=== PATIENT | female | born 2005 | race Caucasian/White ===

== ENCOUNTER 2025-05-12 15:20 | Emergency (ER) | payer OTHER, SELFPAY ==
--- OUTSIDE RECORDS SUMMARY | 2025-04-22 11:05 | XMS_ITS | Encounter Summary ---
Author Organization [place] Address [address] [place] [address] Care Team Providers Care Mid Level Practitioner Name Role Phone Clarisa Valdovinos MD Primary Care Provider [phone] Clarisa Valdovinos MD Unavailable [phone] Khushbu Ruiz APRN [facility] Unavailable [phone] Encounter Details Date Type Department Care Team (Late st Contact Info) Description 04/22/2025 11:05 AM CDT E-Visit [facility] [address] [facility] [address] [place] [address] Clarisa Valdovinos MD [address] [facility] [address] [place] [address] ADHD (attention deficit hyperactivity disorder), inattentive type (Primary Dx) Social History Tobacco Use Types Packs/Day Years Used Date Smoking Tobacco: Never Passive Smoke Exposure: Never Smokeless Tobacco: Never Alcohol Use Standard Drinks/Week Comments Never 0 (1 standard drink = 0.6 oz pur e alcohol) Social Connection and Isolation Panel [NHANES] A nswer Date Recorded Frequency of Communication with Friends and Fami ly Not on file 11/21/2023 How often do you get together with friends or re latives? Once a week 11/21/2023 Attends Mandaeism Services Not on file 11/20 Active Member of Clubs or Organizations Not on f ile 11/21/2023 Attends Club or Organization Meetings Not on maryana e 11/21/2023 Marital Status Not on file 11/21/2023 PHQ-2 Answer Date Recorded PHQ-2 Score 1 04/22/2025 [facility] of Occupat ional Health - Occupational Stress Questionnaire Answer Date Recorded Do you feel stress - tense, restless, nervous, or anxious, or unable to sleep at night because your mind is troubled all the time - these days? Rather much 11/21/2023 Exercise Vital Sign Answer Date Recorde d On average, how many days pe r week do you engage in moderate to strenuous exercise (like a brisk walk)? 3 days 11/21/2023 On average, how many minutes do you engage in exercise at this level? 30 min 11/21/2023 Adolescent Education Answer Date Record ed Getting School Help Needed Not on file 04/20 Food Insecurity Answer Date Recorded Within the past 12 months, d id you worry that your food would run out before you got money to buy more? No 11/21/2023 Within the past 12 months, d id the food you bought just not last and you didn t have money to get more? No 11/21/2023 Housing Stability Answer Date Recorded Do you have housing? (Keithin g is defined as stable permanent housing and does not include staying outside in a car, in a tent, in an abandoned building, in an overnight correction, or couch-surfing.) Yes 11/21/2023 Are you worried about losing your housing? No 11/21/2023 Financial Resource Strain Answer Date R ecorded Within the past 12 months, h ave you or your family members you live with been unable to get utilities (heat, electricity) when it was really needed? No 11/21/2023 Transportation Needs Answer Date Record ed Within the past 12 months, h as lack of transportation kept you from medical appointments, getting your medicines, non-medical meetings or appointments, work, or from getting things that you need? No 11/21/2023 Interpersonal Safety Answer Date Record ed Do you feel physically and e motionally safe where you currently live? Yes 09/25/2024 Within the past 12 months, h ave you been hit, slapped, kicked or otherwise physically hurt by someone? No 09/25/2024 Within the past 12 months, h ave you been humiliated or emotionally abused in other ways by your partner or ex-partner? No 09/25/2024 Comments No Sex and Gender Information Value Date Recorded Sex Assigned at Not on file Legal Sex Female 4:37 AM SUPERVISOR FINISH END Gender Identity Not on file Sexual Orientation Don't know 06/03/2022 9: 43 AM SUPERVISOR FINISH END documented as of this encounter Patient Instructions * Patient Instructions* Clarisa Valdovinos MD - 04/22/2025 11:05 AM CDT I am glad you are doing well. I have refilled your medication: Orders Placed This Encounter Medications ??? methylphenidate (RITALIN LA) 30 MG 24 hr capsule Sig: Take 1 capsule (30 mg) by mouth daily. Dispense: 30 capsule Refill: 0 ??? methylphenidate (RITALIN LA) 30 MG 24 hr capsule Sig: Take 1 capsule (30 mg) by mouth daily. Dispense: 30 capsule Refill: 0 ??? methylphenidate (RITALIN LA) 30 MG 24 hr capsule Sig: Take 1 capsule (30 mg) by mouth daily. This is last prescription in series. Please start eVisit for next refill Dispense: 30 capsule Refill: 0 View your full visit summary for details by clicking on the link below. Your pharmacist will be able to address any questions you may have about the medication. Thank you for choosing us for your care. documented in this encounter Miscellaneous Notes * Telephone Encounter - Clarisa Valdovinos MD - 04/22/2025 1:06 PM CDT Provider E-Visit time total (minutes): 5 minutes documented in this encounter Plan of Treatment Not on file documented as of this encounter Visit Diagnoses Diagnosis ADHD (attention deficit hyperactivity disorder), inattentive type- Primary Attention deficit disorder with hyperactivity documented in this encounter Additional Health Concerns Assessment Noted Time PHQ-9 Depression Total Score: 5 04/22/20 25 11:02 AM CDT documented as of this encounter Care Teams Mid Level Practitioner Relationship Specialty Start Date End Date Clarisa Valdovinos MD [address] [facility] [address] [place] [address] PCP - General Family Medicine 01/28/22 Clarisa Valdovinos MD [address] [facility] [address] [place] [address] Assigned PCP 10/29/22 Khushbu Ruiz APRN SPRIGGER [address] [place] [address] Assigned Behavioral Health Provider 10/06/24 documented as of this encounter
[2025-05-12 16:30] VITALS: BP 142/84; PULSE 97; RESP 18; TEMP 37; O2SAT 99; BMI 32.7
--- NOTE | 2025-05-12 17:54 | ED.GENADULT ---
HPI - General Adult General Chief complaint: GI Bleed Stated complaint: Bloody stool Time Seen by Provider: 05/12/25 17:34 History of Present Illness HPI narrative: This 19-year-old female comes in reporting a couple days where she had some bright red and dark red blood on her stool and in the toilet. Her last bowel movement was completely normal. She does not report any other symptoms. He does not have any family history of colon problems. She is not on any anticoagulants and otherwise is in good health. She does report some constipation and diarrhea symptoms intermitte Related Data Home Medications ?Medication ?Instructions ?Recorded ?Confirmed drospirenone 3 mg-ethinyl 1 tab PO DAILY 05/12/25 05/12/25 estradiol 0.03 mg tablet (Zumandimine (28)) ferrous sulfate 325 mg (65 mg 325 mg PO DAILY 05/12/25 05/12/25 iron) tablet (iron) methylphenidate HCl 20 mg tablet 30 mg PO DAILY 05/12/25 05/12/25 (Ritalin) sertraline 100 mg tablet 100 mg PO DAILY 05/12/25 05/12/25 Allergies Allergy/AdvReac Type Severity Reaction Status Date / Time No Known Drug Allergies Allergy Verified 05/12/25 16:30 Review of Systems Status of ROS: Reports: 10 or more systems reviewed and unremarkable except as noted in History and below Narrative: Constitutional: No fevers, no weight gain or loss. Eyes: No discharge. No vision changes. HENT: No congestion, no sore throat, no ear pain. Cardiovascular: No chest pain, no palpitations. Respiratory: No shortness of breath, no wheezes, no cough. Gastrointestinal: No abdominal pain, no vomiting, no diarrhea. Blood in the toilet as described above. Genitourinary: No dysuria, no hematuria. Musculoskeletal: Normal range of motion. Skin: No rashes, no pruritis. Neurological: No dizziness, weakness, sensory change, speech change. Endo/Heme/Allergies: No bruising or bleeding. No polydipsia. Pysch: no suicidality, no anxiety, no insomnia. All other systems reviewed and are negative. Exam Narrative: Exam Narrative: Constitutional: Well-developed, well-nourished, no acute distress. HEENT: Normocephalic, atraumatic. Neck: Normal range of motion. Nontender. Supple. Heart: Regular. No murmurs. Normal rate. Intact distal pulses. Lungs: Clear to auscultation. No chest discomfort. No wheezes, rhonchi, or rales. Abdomen: Normal bowel sounds. Nontender. No rebound tenderness. Genitalia: Deferred. Back: No midline tenderness. Normal range of motion. Extremities: Normal range of motion. No injury. Skin: Intact. No rash. Warm. No erythema or pallor. Neurologic: No altered sensation. No weakness. Alert and oriented. Psychiatric: No suicidality. No anxiety or depression. No insomnia. Nursing notes and vitals signs are reviewed. Const: Vital Signs, click to edit/add: Vital Signs - 24 hr 05/12/25 16:30 Temperature 98.6 F Pulse Rate [Right Pulse Oximeter] 97 Respiratory Rate 18 Blood Pressure [Ri ght Upper Arm] 142/84 H Pulse Oximetry 99 Oxygen Delivery Me thod Room Air Course Vital Signs Vital signs: Initial Vital Signs Temperature 98.6 F 05/12/25 16:30 Temperature Source Temporal Artery Scan 05/12/25 16:30 Pulse Rate 97 05/12/25 16:30 Respiratory Rate 18 05/12/25 16:30 Blood Pressure 142/84 H 05/12/25 16:30 Blood Pressure Mean 103 05/12/25 16:30 Blood Pressure Position Sitting 05/12/25 16:30 Pulse Oximetry 99 05/12/25 16:30 Oxygen Delivery Method Room Air 05/12/25 16:30 Vital Signs Temperature 98.6 F 05/12/25 16:30 Pulse Rate 97 05/12/25 16:30 Respiratory Rate 18 05/12/25 16:30 Blood Pressure 142/84 H 05/12/25 16:30 Pulse Oximetry 99 05/12/25 16:30 Oxygen Delivery Method Room Air 05/12/25 16:30 Temperature 98.6 F 05/12/25 16:30 Pulse Rate 97 05/12/25 16:30 Respiratory Rate 18 05/12/25 16:30 Blood Pressure 142/84 H 05/12/25 16:30 Pulse Oximetry 99 05/12/25 16:30 Oxygen Delivery Method Room Air 05/12/25 16:30 Medical Decision Making MDM Narrative Medical decision making narrative: This patient comes in reporting some blood in the toilet as described above. She called the nurse at the clinic who told her to come in here for evaluation. She arrives here with normal vital signs. She is otherwise in good health. She does describe some recent constipation and diarrhea symptoms. I stated that most likely this is coming from the rectum and perhaps from a anal fissure or hemorrhoid bleed. I did discuss lab and imaging options here and the patient declined these currently in a process of shared decision making. I did describe signs and symptoms where she should return for re-evaluation. I did state that a scope of some sort to give a direct look is what is recommended when there is bleeding in the toilet like this. She plans to follow-up with her primary physician. Discharge Plan Discharge Clinical Impression: Rectal bleeding Patient Disposition: Home, Self-Care Condition: Stable Additional Instructions: it is recommended to use fiber additives regularly. Follow up with primary physician for ongoing management. return to emergency department if bleeding is recurrent. Prescriptions: No Action methylphenidate HCl [Ritalin] 20 mg tablet 30 mg PO DAILY sertraline 100 mg tablet 100 mg PO DAILY drospirenone-ethinyl estradiol [Zumandimine (28)] 3-0.03 mg tablet 1 tab PO DAILY ferrous sulfate [iron] 325 mg (65 mg iron) tablet 325 mg PO DAILY Stand Alone Forms: [employer] Info Instructions
--- OUTSIDE RECORDS SUMMARY | 2025-05-12 18:13 | XMS_ITS | Encounter Summary ---
Author Organization [place] Address [address] [place] [address] Care Team Providers Care Auricular Acupuncturist Name Role Phone Clarisa Valdovinos MD Primary Care Provider [phone] Clarisa Valdovinos MD Unavailable [phone] Khushbu Ruiz APRN BEHAVIORAL MODIFICATION ASSISTANT Unavailable [phone] Khushbu Ruiz APRN BEHAVIORAL MODIFICATION ASSISTANT Unavailable [phone] Encounter Details Date Type Department Care Team (Late st Contact Info) Description 03/01/2023 MyC Medical Advice [facility] [address] [facility] [address] [place] [address] Clarisa Valdovinos MD [address] [facility] [address] [place] [address] Social History Tobacco Use Types Packs/Day Years Used Date Smoking Tobacco: Never Passive Smoke Exposure: Never Smokeless Tobacco: Never Alcohol Use Standard Drinks/Week Comments Never 0 (1 standard drink = 0.6 oz pur e alcohol) PHQ-2 Answer Date Recorded PHQ-2 Score 2 11/25/2022 Hunger Vital Sign Answer Date Recorded Within the past 12 months, y ou worried that your food would run out before you got the money to buy more. Never true 06/03/20 22 Within the past 12 months, t he food you bought just didn't last and you didn't have money to get more. Never true 06/03/2022 PRAPARE - Transportation Answer Date Re corded In the past 12 months, has l ack of transportation kept you from medical appointments or from getting medications? No 06/03/2022 Lack of Transportation (Non-Medical) Not on file 06/03/2022 Housing Stability Vital Sign Answer Vince e Recorded In the last 12 months, was t here a time when you were not able to pay the mortgage or rent on time? No 06/03/2022 Number of Places Lived in the Last Year Not on f ile 06/03/2022 In the last 12 months, was t here a time when you did not have a steady place to sleep or slept in a fdc (including now)? No 06/03/2022 Comments No Sex and Gender Information Value Date Recorded Sex Assigned at Not on file Legal Sex Female 4:37 AM PATIENT CARE DIRECTOR Gender Identity Not on file Sexual Orientation Don't know 06/03/2022 9: 43 AM PATIENT CARE DIRECTOR documented as of this encounter Plan of Treatment Not on file documented as of this encounter Visit Diagnoses Not on filedocumented in this encounter Additional Health Concerns Infection Onset Date Last Indicated Resolved Time Rule Out COVID-19 08/03/2024 08/03/2024 08/03/2024 6:52 PM PATIENT CARE DIRECTOR documented as of this encounter Care Teams Auricular Acupuncturist Relationship Specialty Start Date End Date Clarisa Valdovinos MD [address] [facility] [address] [place] [address] PCP - General Family Medicine 01/28/22 Clarisa Valdovinos MD [address] [facility] [address] [place] [address] Assigned PCP 10/29/22 Khushbu Ruiz APRN BEHAVIORAL MODIFICATION ASSISTANT [address] [place] [address] Assigned Behavioral Health Provider 10/06/24 Khushbu Ruiz APRN BEHAVIORAL MODIFICATION ASSISTANT [address] [place] [address] Assigned Behavioral Health Provider 01/07/24 10/05/24 documented as of this encounter
--- OUTSIDE RECORDS SUMMARY | 2025-05-12 18:13 | XMS_ITS | Encounter Summary ---
Author Organization [place] Address [address] [place] [address] Care Team Providers Care Basketball Referee Name Role Phone Clarisa Valdovinos MD Primary Care Provider [phone] Clarisa Valdovinos MD Unavailable [phone] Khushbu Ruiz APRN [facility] Unavailable Reason for Visit * Reason Onset Date Comments Rectal Problem 05/11/2025 Encounter Details Date Type Department Care Team (Late st Contact Info) Description 05/11/2025 MyC Medical Advice [facility] [address] [facility] [address] [place] [address] Clarisa Valdovinos MD [address] [facility] [address] [place], [place] [id number] Rectal Problem Social History Tobacco Use Types Packs/Day Years [...] re latives? Once a week 11/21/2023 Attends [employer] [facility] Not on file 11/20 Active Member of Clubs or Organizations Not on f ile 11/21/2023 Attends Club or Organization Meetings Not on maryana e 11/21/2023 Marital Status Not on file 11/21/2023 PHQ-2 Answer Date Recorded PHQ-2 Score 1 04/22/2025 [facility] of Occupat ional Health - Occupational Stress [...] in an abandoned building, in an overnight mcfp, or couch-surfing.) Yes 11/21/2023 Are you worried [...] on file Legal Sex Female 4:37 AM WATCH AND CLOCK REPAIRER Gender Identity Not on file Sexual Orientation Don't know 06/03/2022 9: 43 AM WATCH AND CLOCK REPAIRER documented as of this encounter Miscellaneous Notes * Telephone Encounter - Kristal Hare RN - 05/12/2025 1:01 PM CDT No answer. Left message on patient's voicemail to call back and speak with a triage nurse. Responded to the patient through [employer]. Kristal Hare RN [facility] documented in this encounter Plan of Treatment Not on file documented as of this encounter Visit Diagnoses Not on filedocumented in this encounter Additional Health Concerns Assessment Noted Time PHQ-9 Depression Total Score: 5 04/22/20 25 11:02 AM CDT documented as of this encounter Care Teams Basketball Referee Relationship Specialty Start Date End Date Clarisa Valdovinos MD [address] [facility] [address] [place] [address] PCP - General Family Medicine 01/28/22 Clarisa Valdovinos MD [address] [facility] [address] [place] [address] Assigned PCP 10/29/22 Khushbu Ruiz APRN HOSE TENDER [address] [place] [address] Assigned Behavioral Health Provider 10/06/24 documented as of this encounter
--- OUTSIDE RECORDS SUMMARY | 2025-05-12 18:13 | XMS_ITS | Encounter Summary ---
Author Organization [place] Address [address] [place] [address] Care Team Providers Care Sports Development Officer Name Role Phone Clarisa Valdovinos MD Primary Care Provider [phone] Clarisa Valdovinos MD Unavailable [phone] Khushbu Ruiz APRN SHACTOR HELPER Unavailable [phone] Khushbu Ruiz APRN SHACTOR HELPER Unavailable [phone] Encounter Details Date Type Department Care Team (Late st Contact Info) Description 03/09/2024 MyC Medical Advice Initial Department [facility] Social History Tobacco Use Types Packs/Day Years [...] re latives? Once a week 11/21/2023 Attends [employer] Services Not on file 11/20 Active Member of Clubs or Organizations Not on f ile 11/21/2023 Attends Club or Organization Meetings Not on maryana e 11/21/2023 Marital Status Not on file 11/21/2023 PHQ-2 Answer Date Recorded PHQ-2 Score 0 03/12/2024 [facility] of Occupat ional [facility] - Occupational Stress Questionnaire Answer Date Recorded [...] in an abandoned building, in an overnight long-term, or couch-surfing.) Yes 11/21/2023 Are you worried [...] motionally safe where you currently live? Yes 11/24/2023 Within the past 12 months, h ave you been hit, slapped, kicked or otherwise physically hurt by someone? No 11/24/2023 Within the past 12 months, h ave you been humiliated or emotionally abused in other ways by your partner or ex-partner? No 11/24/2023 Comments No Sex and Gender Information Value Date Recorded Sex Assigned at Not on file Legal Sex Female 4:37 AM FILE CONVERSION OPERATOR Gender Identity Not on file Sexual Orientation Don't know 06/03/2022 9: 43 AM FILE CONVERSION OPERATOR documented as of this encounter Plan of Treatment Not on file documented as of this encounter Visit Diagnoses Not on filedocumented in this encounter Additional Health Concerns Infection Onset Date Last Indicated Resolved Time Rule Out COVID-19 08/03/2024 08/03/2024 08/03/2024 6:52 PM FILE CONVERSION OPERATOR Assessment Noted Time PHQ-9 Depression Total Score: 1 03/09/20 12:45 PM CDT documented as of this encounter Care Teams Sports Development Officer Relationship Specialty Start Date End Date Clarisa Valdovinos MD [address] [facility] [address] [place] [address] PCP - General Family Medicine 01/28/22 Clarisa Valdovinos MD [address] [facility] [address] [place] [address] Assigned PCP 10/29/22 Khushbu Ruiz APRN SHACTOR HELPER [address] [place] [address] Assigned Behavioral Health Provider 10/06/24 Khushbu Ruiz APRN SHACTOR HELPER [address] [place] [address] Assigned Behavioral Health Provider 01/07/24 10/05/24 documented as of this encounter
--- OUTSIDE RECORDS SUMMARY | 2025-05-12 18:13 | XMS_ITS | Encounter Summary ---
Author Organization [place] Address [address] [place] [address] Care Team Providers Care Waste Machine Tender Name Role Phone Clarisa Valdovinos MD Primary Care Provider [phone] Clarisa Valdovinos MD Unavailable [phone] Khushbu Ruiz APRN POUNDMASTER Unavailable [phone] Khushbu Ruiz APRN POUNDMASTER Unavailable [phone] Encounter Details Date Type Department Care Team [...] re latives? Once a week 11/21/2023 Attends [employer] Services Not on file 11/20 Active Member of Clubs or Organizations Not on f ile 11/21/2023 Attends Club or Organization Meetings Not on maryana e 11/21/2023 Marital Status Not on file 11/21/2023 PHQ-2 Answer Date Recorded PHQ-2 Score 0 03/12/2024 [facility] [place] of Occupat ional [facility] - Occupational Stress Questionnaire Answer Date Recorded [...] on file Legal Sex Female 4:37 AM LEAD GAME DESIGNER Gender Identity Not on file Sexual Orientation Don't know 06/03/2022 9: 43 AM LEAD GAME DESIGNER documented as of this encounter Plan of Treatment Not on file documented as of this encounter Visit Diagnoses Not on filedocumented in this encounter Additional Health Concerns Infection Onset Date Last Indicated Resolved Time Rule Out COVID-19 08/03/2024 08/03/2024 08/03/2024 6:52 PM LEAD GAME DESIGNER Assessment Noted Time PHQ-9 Depression Total Score: 1 03/09/20 12:45 PM CDT documented as of this encounter Care Teams Waste Machine Tender Relationship Specialty Start Date End Date Clarisa Valdovinos MD [address] [facility] [address] [place] [address] PCP - General Family Medicine 01/28/22 Clarisa Valdovinos MD [address] [facility] [address] [place] [address] Assigned PCP 10/29/22 Khushbu Ruiz APRN POUNDMASTER [address] [place] [address] Assigned Behavioral Health Provider 10/06/24 Khushbu Ruiz APRN POUNDMASTER [address] [place] [address] Assigned Behavioral Health Provider 01/07/24 10/05/24 documented as of this encounter
--- OUTSIDE RECORDS SUMMARY | 2025-05-12 18:13 | XMS_ITS | Encounter Summary ---
Author Organization [place] Address [address] [place] [address] Care Team Providers Care Fire Safety Inspector Name Role Phone Clarisa Valdovinos MD Primary Care Provider [phone] Clarisa Valdovinos MD Unavailable [phone] Khushbu Ruiz APRN BRAKE REPAIR MECHANIC Unavailable [phone] Khushbu Ruiz APRN BRAKE REPAIR MECHANIC Unavailable [phone] Reason for Visit * Reason Onset Date Comments Refill Request 11/24/2022 propranolol (IND ERAL) 10 MG tablet pt. Wants 90 day supply rec. 11-24-22 Encounter Details Date Type Department Care Team (Late st Contact Info) Description 11/24/2022 Refill [facility] [address] [place] [address] Clarisa Valdovinos MD [address] [facility] [address] [place], [place] [id number] Refill Request (propranolol (INDERAL) 10 MG tablet pt. Wants 90 day supply rec. 11-24-22) Social History Tobacco Use Types Packs/Day Years Used Date Smoking Tobacco: Never Passive Smoke Exposure: Never Alcohol Use Standard Drinks/Week Comments Never [...] place to sleep or slept in a halfway (including now)? No 06/03/2022 Comments No Sex and Gender Information Value Date Recorded Sex Assigned at Not on file Legal Sex Female 4:37 AM PLANNING RN Gender Identity Not on file Sexual Orientation Don't know 06/03/2022 9: 43 AM PLANNING RN documented as of this encounter Miscellaneous Notes * Telephone Encounter - Anisha Warner RN - 11/25/2022 4:20 PM CDT Routing refill request to provider for review/approval because: Needs review Last Written Prescription Date: 11/14/22 Last Fill Quantity: 30, # refills: 0 Last office visit provider: 10/25/22 Requested Prescriptions Pending Prescriptions Disp Refills ??? propranolol (INDERAL) 10 MG tablet 30 tablet 0 Sig: Take 1 tablet (10 mg) by mouth 2 times daily as needed (anxiety) Beta-Blockers Protocol Passed - 11/24/2022 2:01 PM Passed - Blood pressure under 140/90 in past 12 months BP Readings from Last 3 Encounters: 06/03/22 116/79 (70 %/ 92 %)* *BP percentiles are based on the 2017 AAP Clinical Practice Guideline for girls Passed - Patient is age 6 or older Passed - Recent (12 mo) or future (30 days) visit within the authorizing provider's specialty Patient has had an office visit with the authorizing provider or a provider within the authorizing providers department within the previous 12 mos or has a future within next 30 days. See Patient Info tab in inbasket, or Choose Columns in Meds & Orders section of the refill encounter. Passed - Medication is active on med list Anisha Warner RN 11/25/22 4:20 PM documented in this encounter Plan of Treatment Not on file documented as of this encounter Visit Diagnoses Diagnosis DARCY (generalized anxiety disorder) Generalized anxiety disorder ADHD (attention deficit hyperactivity disorder), inattentive type Attention deficit disorder with hyperactivity documented in this encounter Additional Health Concerns Infection Onset Date Last Indicated Resolved Time Rule Out COVID-19 08/03/2024 08/03/2024 08/03/2024 6:52 PM PLANNING RN documented as of this encounter Care Teams Fire Safety Inspector Relationship Specialty Start Date End Date Clarisa Valdovinos MD [address] [facility] [address] [place] [address] PCP - General Family Medicine 01/28/22 Clarisa Valdovinos MD [address] [facility] [address] [place] [address] Assigned PCP 10/29/22 Khushbu Ruiz APRN BRAKE REPAIR MECHANIC [address] [place] [address] Assigned Behavioral Health Provider 10/06/24 Khushbu Ruiz APRN BRAKE REPAIR MECHANIC [address] [place] [address] Assigned Behavioral Health Provider 01/07/24 10/05/24 documented as of this encounter
--- OUTSIDE RECORDS SUMMARY | 2025-05-12 18:13 | XMS_ITS | Encounter Summary ---
Author Organization [place] Address [address] [facility] [place] [address] Care Team Providers Care Processor Inspector Name Role Phone Clarisa Valdovinos MD Primary Care Provider [phone] Clarisa Valdovinos MD Unavailable [phone] Khushbu Ruiz APRN AWNING SPREADER Unavailable [phone] Khushbu Ruiz APRN AWNING SPREADER Unavailable [phone] Encounter Details Date Type Department Care Team (Late st Contact Info) Description 09/02/2024 MyC Medical Advice [facility] [address] [facility] [address] [facility] [address] [place] [address] Clarisa Valdovinos MD [address] [facility] [address] [place] [address] DARCY (generalized anxiety disorder) (Primary Dx); Anxiety Social History Tobacco Use Types Packs/Day Years [...] re latives? Once a week 11/21/2023 Attends Confucianist Services Not on file 11/20 Active Member of Clubs or Organizations Not on f ile 11/21/2023 Attends Club or Organization Meetings Not on maryana e 11/21/2023 Marital Status Not on file 11/21/2023 PHQ-2 Answer Date Recorded PHQ-2 Score 1 07/15/2024 [facility] - Occupational Stress Questionnaire Answer Date [...] Answer Date Recorded Do you have housing? (Bria g is defined as stable permanent housing and does not include staying outside in a car, in a tent, in an abandoned building, in an overnight mcc, or couch-surfing.) Yes 11/21/2023 Are you worried [...] file Legal Sex Female 4:37 AM SUPERVISOR BINDERY Gender Identity Not on file Sexual Orientation Don't know 06/03/2022 9: 43 AM SUPERVISOR BINDERY documented as of this encounter Miscellaneous Notes * Telephone Encounter - Jamel Dunn, RN - 09/09/2024 11:06 AM SUPERVISOR BINDERY Khushbu Napier pt is requesting a form be completed for an VIVIENNE. Dagoberto Dunn BSN, PHN, AMB-BC (she/her) [facility] RN RVISOR BINDERY * Telephone Encounter - Heavenly Boyer - 09/03/2024 7:42 AM CST Please review and sign if agreeable-thanks! RVISOR BINDERY documented in this encounter Plan of Treatment Not on file documented as of this encounter Visit Diagnoses Diagnosis DARCY (generalized anxiety disorder)- Primary Generalized anxiety disorder Anxiety Anxiety state, unspecified documented in this encounter Additional Health Concerns Assessment Noted Time PHQ-9 Depression Total Score: 1 03/09/20 24 12:45 PM CDT documented as of this encounter Care Teams Processor Inspector Relationship Specialty Start Date End Date Clarisa Valdovinos MD [address] [address] PCP - General Family Medicine 01/28/22 Clarisa Valdovinos MD [address] [address] Assigned PCP 10/29/22 Khushbu Ruiz APRN AWNING SPREADER [address] [place] [address] Assigned Behavioral Health Provider 10/06/24 Khushbu Ruiz APRN [facility] [address] [place] [address] Assigned Behavioral Health Provider 01/07/24 10/05/24 documented as of this encounter
--- OUTSIDE RECORDS SUMMARY | 2025-05-12 18:13 | XMS_ITS | Clinical Summary ---
Author Organization [place] Address [address] [place] [address] Care Team Providers Care Oil Paint Shader Name Role Phone Clarisa Valdovinos MD Primary Care Provider [phone] Clarisa Valdovinos MD Unavailable [phone] Khushbu Ruiz APRN [facility] Unavailable [phone] Allergies No known active allergies Medications * This document contains information received from the source organization and may not represent a complete record from that organization. fluocinonide (LIDEX) 0.05 % external solutionIndicati ons:Psoriasis APPLY SPOT TREATMENT TO THE AREAS OF PSORIASIS IN SCALP NEEDED NIGHTLY. 60 mL 1 025 Active sertraline (ZOLOFT) 100 MG tabletIndication s:DARCY (generalized anxiety disorder) Take 1.5 tablets (150 mg) by mouth daily. 135 tablet 1 025 Active fluocinolone acetonide (DERMA SMOOTHE/FS BODY) 0.01 % external oilIndications:P soriasis Apply to scalp as often as each night as needed for thick scale. Wash out in AM. 118.28 mL 1 025 Active tacrolimus (PROTOPIC) 0.1 % external ointmentIndicati ons:Psoriasis Apply topically 2 times daily as needed. 100 g 1 025 Active methylphenidate (RITALIN LA) 30 MG 24 hr capsuleIndicatio ns:ADHD (attention deficit hyperactivity disorder), inattentive type Take 1 capsule (30 mg) by mouth daily. 30 capsule 025 2024 Active methylphenidate (RITALIN LA) 30 MG 24 hr capsuleIndicatio ns:ADHD (attention deficit hyperactivity disorder), inattentive type Take 1 capsule (30 mg) by mouth daily. 30 capsule 025 2024 Active methylphenidate (RITALIN LA) 30 MG 24 hr capsuleIndicatio ns:ADHD (attention deficit hyperactivity disorder), inattentive type Take 1 capsule (30 mg) by mouth daily. This is last prescription in series. Please start eVisit for next refill 30 capsule 025 2025 Active drospirenone-eth inyl estradiol (ZUMANDIMINE) 3-0.03 MG tabletIndication s:Encounter for surveillance of contraceptive pills TAKE 1 TABLET BY MOUTH EVERY DAY 84 tablet 1 025 Active drospirenone-eth inyl estradiol (LISA) 3-0.03 MG tabletIndication s:Encounter for surveillance of contraceptive pills Take 1 tablet by mouth daily 90 tablet 4 024 2024 Discontinued Active Problems Problem Noted Date Diagnosed Date Iron deficiency anemia, unsp ecified iron deficiency anemia type 06/06/2022 Overview (09/25/2024): 09/25/2024 A/P: Taking over the counter iron daily ADHD (attention deficit hype ractivity disorder), inattentive type 06/03/2022 Overview (09/25/2024): 09/25/2024 A/P: Was stablized on 30 mg ritalin LA by psychiatry in 2023. Now transferring care here; working well. History: 2023: had [facility] neuropsych evaluation that suggested stimulants might not be effective halfway. However needs to get homework done. Plan: stop guanfacine, start Vyvanse. Refer [facility] 2021: See below - has been on adderall since 2nd grade Anxiety 06/03/2022 Overview (09/25/2024): 09/25/2024 A/P: Doing much better with anxiety on sertraline 100 mg daily since 2023. 2021: Currently undergoing intensive neuropsych workup @ [facility] Will need to establish w psychiatrist after this Went ahead and placed referral now as waitlist long Acne, unspecified acne type 06/03/2022 Overview (06/03/2022): Following with derm Dr. Nielson online Start oral abx and OCP Encounters Date Type Department Care Team Description 05/11/2025 MyC Medical Advice [address] [address] Clarisa Valdovinos MD Rectal Problem 04/26/[address] [place] [address] Clarisa Valdovinos MD Medication Refill 04/22/2025 11:05 AM CDT E-Visit [address] [address] Clarisa Valdovinos MD ADHD (attention deficit hyperactivity disorder), inattentive type (Primary Dx) from Last 3 Months Immunizations Immunization Administration Dates Next Due COVID-19 12+ (Pfizer) 05/18/2024 COVID-19 Bivalent 12+ (Pfizer) 06/01/2022 COVID-19 MONOVALENT 12+ (Pfizer) 12/15/2020,11/14 Comvax (HIB/HepB) 11/25/2005,03/24/2005,01/25/20 05 DTAP (<7y) 11/24/2009, 6,06/14/2005,03/24,01/24/2005 Flu, Unspecified 06/01/2006 HPV9 (Gardasil) 09/25/2024 Hepatitis A (Vaqta/Havrix)(P eds 12m-18y) 06/14/2012,12/06/2011 Influenza (prior to 2023) 06/14/2012,05/03/2007, 06/14/2005 Influenza Intranasal Vaccine 06/14/2010,09/25/20 09 Influenza Vaccine >6 months,quad, PF ,05/06/2021,03/31/2020,05/01 Influenza, Split Virus, Triv alent, Pf (Fluzone\Fluarix) 05/18/2024 Influenza,INJ,MDCK,PF,Quad >6mo(Flucelvax) 06/01/2022 MMR (MMRII) 12/17/2008,11/25/2005 Meningococcal ACWY (Menactra ) 05/06/2021 Meningococcal B (Bexsero ) 09/25/2024 Nasal Influenza Vaccine 2-49 (FluMist) 4,04/23/2013 Pneumococcal (PCV 7) 03/01/2006,06/14/20 05,03/24/2005,01/24 Poliovirus, inactivated (IPV) 12/17/2008 ,06/14/2005,03/24/2005,01/24 TDAP (Adacel,Boostrix) 05/15/2023 Varicella (Varivax) 11/24/2009,11/25/2005 Family History Medical History Relation Comments Anxiety Disorder Father Attention Deficit Disorder Father Alcoholism Maternal Aunt Myocardial Infarction Maternal Grandfather Depression Maternal Grandmother Substance Abuse Maternal Grandmother Anxiety Disorder Mother Suicidality No family hx of Relation Status Comments Father Maternal Aunt Alive Maternal Grandfather Maternal Grandmother Mother Social History Tobacco Use Types Packs/Day Years Used Date Smoking Tobacco: Never Passive Smoke Exposure: Never Smokeless Tobacco: Never Tobacco Cessation:Counseling Given: Not Answered Alcohol Use Standard Drinks/Week Comments Never 0 (1 standard drink = 0.6 oz pur e alcohol) Social Connection and Isolation Panel [NHANES] A nswer Date Recorded Frequency of Communication with Friends and Fami ly Not on file 11/21/2023 How often do you get together with friends or re latives? Once a week 11/21/2023 Attends Mandaen Services Not on file 11/20 Active Member of Clubs or Organizations Not on f ile 11/21/2023 Attends Club or Organization Meetings Not on maryana e 11/21/2023 Marital Status Not on file 11/21/2023 PHQ-2 Answer Date Recorded PHQ-2 Score 1 04/22/[address] [facility] - Occupational Stress Questionnaire Answer [...] Answer Date Recorded Do you have housing? (Housin g is defined as stable permanent housing and does not include staying outside in a car, in a tent, in an abandoned building, in an overnight long term, or couch-surfing.) Yes 11/21/2023 Are you worried [...] on file Legal Sex Female 4:37 AM KENO CLERK Gender Identity Not on file Sexual Orientation Don't know 06/03/2022 9: 43 AM KENO CLERK Last Filed Vital Signs Vital Sign Reading Time Taken Comments Blood Pressure 123/79 09/25/2024 9:07 AM CDT Pulse 105 09/25/2024 9:07 AM CDT Temperature 36.9 C (98.4 F) 09/25/2024 9:07 AM CDT Respiratory Rate 16 09/25/2024 9:07 AM CDT Oxygen Saturation 96% 09/25/2024 9:07 AM CDT Inhaled Oxygen Concentration - - Weight 92.9 kg (204 lb 11.2 oz) 09/25/2024 9:07 AM CDT BLIND WT Height 171.2 cm (5' 7.4) 09/25/2024 9:07 AM CDT Body Mass Index 31.68 09/25/2024 9:07 AM CDT Plan of Treatment Health Maintenance Due Date Last Done Comments HPV VACCINE (2 - 3-dose series) 10/23/2024 09/25/2024 YEARLY PREVENTIVE VISIT 2024 11/24/2023, 06/03 MENINGITIS B VACCINE (2 of 2 - Bexsero SCDM 2-dose series) 03/28/2025 09/25/2024 CBC W/DIFFERENTIAL 08/03/2025 08/03/2024, 0 01/27/2024, 07/21/2022, Additional history exists ANNUAL REVIEW OF HM ORDERS 09/25/202509/25, 02/05/2024, 06/03/2022, Additional history exists CHLAMYDIA SCREENING 09/25/2025 09/25/2024 ADVANCE CARE PLANNING 2028 11/24/2023 DTAP/TDAP/TD VACCINE (7 - Td or Tdap) 05/15/2033 05/15/2023, 11/24/2009, 06/01/2006, Additional history exists ZOSTER VACCINE (1 of 2) 2054 HEPATITIS B VACCINE Completed 11/25/2005, 03/24/2005, 01/24/2005 PNEUMOCOCCAL VACCINE: PEDIATRICS (0 to 5 YEARS) AND AT-RISK PATIENTS (6 to 49 YEARS) Aged Out 03/01/2006, 06/14/2005, 03/24/2005, Additional history exists No longer eligible based on patient's age to complete this topic MENINGITIS VACCINE Completed 05/06/2021 HEPATITIS C SCREENING Completed 09/25/2024 HIV SCREENING Completed 09/25/2024 INFLUENZA VACCINE Completed 04/16/2025, , 04/08/2023, Additional history exists PHQ-2 (once per calendar year) Completed 04/22/2025, 04/22/2025, 09/23/2024, Additional history exists COVID-19 VACCINE Completed 05/01/2025, 08/2023, 05/06/2023, Additional history exists Procedures Procedure Name Priority Date/Time Associated Diagnosis Comments CHLAMYDIA TRACHOMATIS/NEISSERI A GONORRHOEAE BY PCR Routine 09/25/2024 10:13 AM CDT Screening for STDs (sexually transmitted diseases) HIV ANTIGEN ANTIBODY COMBO Routine 09/25/2024 10:06 AM CDT Screening for HIV (human immunodeficiency virus) HEPATITIS C SCREEN REFLEX TO HCV RNA QUANT AND GENOTYPE Routine 09/25/2024 10:06 AM CDT Need for hepatitis C screening test CBC WITH PLATELETS & DIFFERENTIAL STAT 08/03/2024 6:30 PM KENO CLERK from Last 3 Months or Most Recently Relevant to Health Maintenance Results * Chlamydia trachomatis/Neisseria gonorrhoeae by PCR- VAGINAL SELF-SWAB (09/25/2024 10:13 AM CDT) Chlamydia Trachomatis Negative Negative 09/26/2024 9:45 AM CDT [facility] Comment: Negative for C. trachomatis rRNA by logging superintendent mediated amplification. A negative result by logging superintendent mediated amplification does not preclude the presence of infection because results are dependent on proper and adequate collection, absence of inhibitors and sufficient rRNA to be detected. Neisseria gonorrhoeae Negative Negative 09/26/2024 9:45 AM CDT [facility] Comment:Negative for N. gono rrhoeae rRNA by logging superintendent mediated amplification. A negative result by logging superintendent mediated amplification does not preclude the presence of C. trachomatis infection because results are dependent on proper and adequate collection, absence of inhibitors and sufficient rRNA to be detected. CTNG Specimen Source Vagina 09/26/2024 9:45 AM CDT [facility] Swab VAGINAL STRUCTURE / Unknown Non-blood Collection / Unknown 09/25/2024 10:13 AM CDT 09/25/2024 10:14 AM CDT Clarisa Valdovinos MD LAB - MICRO GENERAL ORDERAB LES Final Result Performing Organization Address City/[facility]/ZIP Co de Phone Number [facility] Inf. Diseases Diag. Lab [address] [place] [address] * HIV Antigen Antibody Combo (09/25/2024 10:06 AM CDT) HIV Antigen Antibody Combo Nonreactive Nonreactive 09/26/2024 6:51 AM CDT [facility] Comment:Negative HIV-1 p24 a ntigen and HIV-1/2 antibody screening test results usually indicate the absence of HIV-1 and HIV-2 infection. However, such negative results do not rule-out acute HIV infection. If acute HIV-1 or HIV-2 infection is suspected, detection of HIV-1 or HIV-2 RNA is recommended. This result is obtained using the Sherly Elecsys HIV Duo method on the nadira e801 immunoassay analyzer. Blood STRUCTURE OF LEFT UPPER LIMB / Unknown Venipuncture / Unknown 09/25/2024 10:06 AM CDT 09/25/2024 10:06 AM CDT us Clarisa Valdovinos MD LAB - BLOOD ORDERABLES Deborah l Result [facility] [address] [facility] [facility] [place] [address] * Hepatitis C Screen Reflex to HCV RNA Quant and Genotype (09/25/2024 10:06 AM CDT) Hepatitis C Antibody Nonreactive Nonreactive 09/26/2024 4:50 AM CDT [facility] Comment:A nonreactive screen ing test result does not exclude the possibility of exposure to or infection with HCV. Nonreactive screening test results in individuals with prior exposure to HCV may be due to antibody levels below the limit of detection of this assay or lack of reactivity to the HCV antigens used in this assay. Patients with recent HCV infections (<3 months from time of exposure) may have false- negative HCV antibody results due to the time needed for seroconversion (average of 8 to 9 weeks). Blood STRUCTURE OF LEFT UPPER LIMB / Unknown Venipuncture / Unknown 09/25/2024 10:06 AM CDT 09/25/2024 10:06 AM CDT us Clarisa Valdovinos MD LAB - BLOOD ORDERABLES Deborah pierce Result [facility]ATORY [facility] [address] [facility] [facility] [place] [address] from Last 3 Months or Most Recently Relevant to Health Maintenance Insurance inMarket BLUE PLUS [facility] BLUE PLUS BLUE PLUS [facility] Address: [address] [address] [place] [address] [facility] SeeOn BLUE PLUS Care Teams Oil Paint Shader Relationship Specialty Start Date End Date Clarisa Valdovinos MD [address] [facility] [address] [place] [address] PCP - General Family Medicine 01/28/22 Clarisa Valdovinos MD [address] [facility] [address] [place] [address] Assigned PCP 10/29/22 Khushbu Ruiz APRN COACH TOUR DRIVER [address] [facility] [address] [place] [address] Assigned Behavioral Health Provider 10/06/24
--- OUTSIDE RECORDS SUMMARY | 2025-05-12 18:13 | XMS_ITS | Encounter Summary ---
Author Organization [place] Address [address] [facility] [place] [address] Care Team Providers Care Special Needs Nanny Name Role Phone Clarisa Valdovinos MD Primary Care Provider [phone] Clarisa Valdovinos MD Unavailable [phone] Khushbu Ruiz APRN [facility] Unavailable Reason for Visit * Reason Comments Medication Refill Encounter Details Date Type Department Care Team (Late st Contact Info) Description 04/26/2025 [facility] [address] [place] [address] Clarisa Valdovinos MD [address] [facility] [address] [place], [place] [id number] Medication Refill Social History Tobacco Use Types Packs/Day Years [...] re latives? Once a week 11/21/2023 Attends Scientologist Services Not on file 11/20 Active Member of Clubs or Organizations Not on f ile 11/21/2023 Attends Club or Organization Meetings Not on maryana e 11/21/2023 Marital Status Not on file 11/21/2023 PHQ-2 Answer Date Recorded PHQ-2 Score 1 04/22/2025 [facility] - Occupational Stress Questionnaire Answer Date [...] in an abandoned building, in an overnight snf, or couch-surfing.) Yes 11/21/2023 Are you worried [...] on file Legal Sex Female 4:37 AM TAILINGS DAM LABORER Gender Identity Not on file Sexual Orientation Don't know 06/03/2022 9: 43 AM TAILINGS DAM LABORER documented as of this encounter Plan of Treatment Not on file documented as of this encounter Visit Diagnoses Diagnosis Encounter for surveillance of contraceptive pills Surveillance of previously prescribed contraceptive pill documented in this encounter Additional Health Concerns Assessment Noted Time PHQ-9 Depression Total Score: 5 04/22/20 25 11:02 AM CDT documented as of this encounter Care Teams Special Needs Nanny Relationship Specialty Start Date End Date Clarisa Valdovinos MD [address] [facility] [address] [place] [address] PCP - General Family Medicine 01/28/22 Clarisa Valdovinos MD [address] [facility] [address] [place] [address] Assigned PCP 10/29/22 Khushbu Ruiz APRN DOUGHNUT FRYER [address] [place] [address] Assigned Behavioral Health Provider 10/06/24 documented as of this encounter
== END 2025-05-12 18:17 | disposition home or self-care (01) ==
LOC: ED 18:11
PROVIDERS: Emergency Provider Emergency Medicine Emergency Medical Services
DX: K63.5 Polyp of colon (principal)
CPT/HCPCS: 99282; 99283; 99284